=== PATIENT | female | born 1995 | race African-American/Black ===

== ENCOUNTER 2023-11-06 15:26 | Emergency (ER) | payer MEDICAID ==
[~2023-11-06] VITALS: Ht 154.9 cm; Wt 76.0 kg
[2023-11-06 15:35] VITALS: O2SAT 100
[2023-11-06] MEDS ORDERED: ACET325T52 MT (16:22)
[2023-11-06] MEDS ORDERED: AZIT250T12 MT (16:22)
[2023-11-06] MEDS: ACETAMINOPHEN 325MG TABLET PO ONE (16:30)
[2023-11-06 17:05] VITALS: BP 126/78; PULSE 88; RESP 16; TEMP 98.2
== END 2023-11-06 17:13 | disposition home or self-care (01) ==
LOC: ER 15:26
DX: J02.9 Acute pharyngitis, unspecified (principal); Z88.6 Allergy status to analgesic agent
CPT/HCPCS: 87430; 87070; 99283; Z7610